=== PATIENT | female | born 1970 | race Hispanic/Latino ===

== ENCOUNTER 2017-03-26 08:35 | Outpatient (CLI) | payer OTHER | END 2017-03-26 10:00 | disposition home or self-care (01) | LOC: MAMMO 08:35 | DX: Z12.31 Encounter for screening mammogram for malignant neoplasm of breast (principal) ==

== ENCOUNTER 2019-02-18 12:19 | Outpatient (CLI) | payer OTHER | END 2019-02-18 23:59 | disposition home or self-care (01) | LOC: MAMMO 12:19 | DX: Z12.31 Encounter for screening mammogram for malignant neoplasm of breast (principal) ==

== ENCOUNTER 2019-03-18 18:45 | Emergency (ER) | payer OTHER ==
[~2019-03-18] VITALS: Ht 152.4 cm; Wt 59.9 kg
[2019-03-18] MEDS ORDERED: CLON0.5T36 PO (18:58)
[2019-03-18 20:52] LABS: PLATELET COUNT 277 K/uL (152-353)
[2019-03-18 21:03] LABS: POTASSIUM 3.6 mmol/L (3.6-5.2); SODIUM 137 mmol/L (136-145)
[2019-03-18 22:12] VITALS: BP 148/72; TEMP 97.5
== END 2019-03-18 22:12 | disposition home or self-care (01) ==
LOC: ED 18:45
PROVIDERS: Emergency Medicine
DX: N39.0 Urinary tract infection, site not specified (principal); R00.1 Bradycardia, unspecified; V50.0XXA Driver of pick-up truck or van injured in collision with pedestrian or animal in nontraffic accident, initial encounter
CPT/HCPCS: 36415; 80053; 81000; 82150; 82550; 83690; 84484; 85027; 87088; 93005; 96374; 96375; 99284; J0696; J1885

== ENCOUNTER 2019-03-22 08:54 | Outpatient (CLI) | payer OTHER ==
[~2019-03-22 08:54] MED LIST: CLON0.5T36 PO
== END 2019-03-22 20:19 | disposition home or self-care (01) ==
LOC: US 08:54
DX: R10.11 Right upper quadrant pain (principal)

== ENCOUNTER 2019-03-23 11:06 | Outpatient (CLI) | payer OTHER | END 2019-03-23 23:17 | disposition home or self-care (01) | LOC: NM 11:06 | DX: R10.11 Right upper quadrant pain (principal) | CPT/HCPCS: A9537 ==

== ENCOUNTER 2019-03-31 08:02 | Day surgery (SDC) | payer OTHER ==
[~2019-03-31] VITALS: Ht 30.5 cm; Wt 0.5 kg
[2019-03-31 08:50] LABS: PLATELET COUNT 266 K/uL (152-353)
[2019-03-31 09:12] LABS: POTASSIUM 3.8 mmol/L (3.6-5.2)
== END 2019-03-31 14:50 | disposition home or self-care (01) ==
LOC: OR 08:02
PROVIDERS: Student in an Organized Health Care Education/Training Program
PROC: 0FT44ZZ Resection of Gallbladder, Percutaneous Endoscopic Approach (ICD-10-PCS; principal; 2019-03-31)
DX: K80.10 Calculus of gallbladder with chronic cholecystitis without obstruction (principal)
CPT/HCPCS: 80053; 85027; J0132; J0330; J0690; J1100; J1170; J1885; J2001; J2250; J2405; J2704; J2710; J3010; J3490

== ENCOUNTER 2021-02-06 14:36 | Outpatient (CLI) | payer OTHER | END 2021-02-06 19:24 | disposition home or self-care (01) | LOC: RAD 14:36 | PROVIDERS: ATTEND Nurse Practitioner Family | DX: M25.561 Pain in right knee (principal) ==

== ENCOUNTER 2021-04-04 08:24 | Outpatient (CLI) | payer OTHER | END 2021-04-04 18:59 | disposition home or self-care (01) | LOC: RAD 08:24 | PROVIDERS: ATTEND Nurse Practitioner Family | DX: M54.5 Low back pain (principal); M54.30 Sciatica, unspecified side ==

== ENCOUNTER 2021-08-08 08:37 | Outpatient (CLI) | payer OTHER | END 2021-08-08 19:33 | disposition home or self-care (01) | LOC: MAMMO 08:37 | PROVIDERS: ATTEND Nurse Practitioner Family | DX: Z12.31 Encounter for screening mammogram for malignant neoplasm of breast (principal) ==

== ENCOUNTER 2022-04-29 22:31 | Outpatient (CLI) | payer OTHER ==
[2022-04-30 01:05] LABS: PLATELET COUNT 237 K/uL (152-353)
== END 2022-04-29 22:57 | disposition home or self-care (01) ==
LOC: LAB 22:31
PROVIDERS: ATTEND Nurse Practitioner Family
DX: F41.9 Anxiety disorder, unspecified (principal); G47.00 Insomnia, unspecified; R53.83 Other fatigue; G89.29 Other chronic pain; F98.8 Other specified behavioral and emotional disorders with onset usually occurring in childhood and adolescence; R63.5 Abnormal weight gain; I10 Essential (primary) hypertension; Z79.899 Other long term (current) drug therapy; R68.89 Other general symptoms and signs
CPT/HCPCS: 80053; 80061; 82306; 82607; 83036; 84439; 84443; 85027

== ENCOUNTER 2022-08-06 16:35 | Outpatient (CLI) | payer OTHER | END 2022-08-06 19:24 | disposition home or self-care (01) | LOC: RAD 16:35 | PROVIDERS: ATTEND Nurse Practitioner Primary Care | DX: R05.9 Cough, unspecified (principal) ==

== ENCOUNTER 2022-09-30 08:34 | Outpatient (CLI) | payer OTHER | END 2022-09-30 18:55 | disposition home or self-care (01) | LOC: RAD 08:34 | PROVIDERS: ATTEND Internal Medicine | DX: S39.012A Strain of muscle, fascia and tendon of lower back, initial encounter (principal); Y92.89 Other specified places as the place of occurrence of the external cause ==

== ENCOUNTER 2023-02-11 11:10 | Outpatient (CLI) | payer OTHER | END 2023-02-11 20:24 | disposition home or self-care (01) | LOC: MAMMO 11:10 → RAD 11:10 | PROVIDERS: ATTEND Nurse Practitioner Family | DX: Z12.31 Encounter for screening mammogram for malignant neoplasm of breast (principal) ==

== ENCOUNTER 2023-02-11 11:14 | Outpatient (CLI) | payer OTHER | END 2023-02-11 20:24 | disposition home or self-care (01) | LOC: MAMMO 11:14 | PROVIDERS: ATTEND Nurse Practitioner Family | DX: Z12.31 Encounter for screening mammogram for malignant neoplasm of breast (principal) ==